=== PATIENT | male | born 1960 | race Caucasian/White ===

== ENCOUNTER 2019-01-07 07:30 | Emergency (ER) | payer OTHER ==
[~2019-01-07] VITALS: Ht 188 cm; Wt 90.7 kg
[2019-01-07 09:00] VITALS: BP 142/76
== END 2019-01-07 09:00 | disposition home or self-care (01) ==
LOC: ER 07:30
DX: S05.02XA Injury of conjunctiva and corneal abrasion without foreign body, left eye, initial encounter (principal); F17.210 Nicotine dependence, cigarettes, uncomplicated; W22.8XXA Striking against or struck by other objects, initial encounter; Y92.89 Other specified places as the place of occurrence of the external cause; Y93.H2 Activity, gardening and landscaping; Y99.8 Other external cause status